=== PATIENT | female | born 1965 | race Caucasian/White ===

== ENCOUNTER 2020-01-06 13:44 | Emergency (ER) | payer MEDICAID ==
[2020-01-06] MEDS ORDERED: Sodium Chloride 0.9% 1000 ML 1,000 ML IV STA (14:06)
[2020-01-06] MEDS ORDERED: Sodium Chloride 0.9% 1000 ML 1,000 ML ONE (14:34)
--- NOTE | 2020-01-06 14:39 | ERPHSYRPT ---
- History of Present Illness Time Seen by Provider: 01/06/20 14:00 Patient Subjective Stated Complaint: Cough Triage Nursing Assessment: Patient ambulated back to ED and transferred self to bed. Patient A+O X3. Patient's skin pink, warm and dry. Patient complains of cough for 2 days. Patient states cough is non productive. Patient also complains of sore throat and congestion with occasional SOB. Patient states she started with a headache last Thursday that lasted 4 days. Patient complains of occasional bodyaches and back pain. Lungs clear a/p michael. Patient denies fever. Physician History: Is a 54-year-old female with 2 days of cough shortness of breath congestion sore throat. This illness started with headache and body aches approximately 4 days ago she is also noted loss of sense of smell Timing/Duration: day(s) (5), gradual onset Cough Quality/Degree: dry cough Possible Cause: occasional episodes Associated Symptoms: chest pain/soreness, cough, muscle aches, nasal drainage, shortness of breath, No fever Allergies/Adverse Reactions: No Known Drug Allergies Allergy (Unverified 01/06/20 13:50) Home Medications: Buspirone HCl [Buspar] 1 tab PO BID 01/06/20 [History] Dextroamphetamine/Amphetamine [Adderall 10 mg Tablet] 1 tab PO DAILY 01/06/20 [History] Lamotrigine [Lamictal] 1 tab PO BID 01/06/20 [History] Sertraline HCl [Zoloft] 1 tab PO BID 01/06/20 [History] Hx Influenza Vaccination/Date Given: No Hx Pneumococcal Vaccination/Date Given: No Immunizations Up to Date: Yes Travel Risk - International Travel Have you traveled outside of the country in past 3 weeks: No - Coronavirus Screening Are you exhibiting any of the following symptoms?: Yes Symptoms: Cough: New Onset, Shortness of Breath, Vomiting/Diarrhea, Headaches/Body Aches/Fatigue Close contact with a COVID-19 positive Pt in past 14-21 Days: No - Review of Systems Constitutional: No Fever, No Chills Eyes: No Symptoms Ears, Nose, & Throat: No Symptoms, Nose Discharge, Throat Pain, Painful Swallowing Respiratory: Cough, Dyspnea, Dyspnea on Exertion ([place]) Cardiac: No Chest Pain, No Edema, No Syncope Abdominal/Gastrointestinal: No Abdominal Pain, No Nausea, No Vomiting, No Diarrhea Genitourinary Symptoms: No Dysuria Musculoskeletal: Arthralgias, Joint Pain, Myalgias, No Back Pain, No Neck Pain Skin: No Rash Neurological: Other (Loss of smell), No Dizziness, No Focal Weakness, No Sensory Changes Psychological: No Symptoms Endocrine: No Symptoms All Other Systems: Reviewed and Negative - Past Medical History Pertinent Past Medical History: No Neurological History: No Pertinent History ENT History: No Pertinent History Cardiac History: No Pertinent History Respiratory History: No Pertinent History Endocrine Medical History: No Pertinent History Musculoskeletal History: No Pertinent History GI Medical History: No Pertinent History History: No Pertinent History Psycho-Social History: Depression Female Reproductive Disorders: No Pertinent History - Past Surgical History Past Surgical History: Yes Neuro Surgical History: No Pertinent History Cardiac: No Pertinent History Respiratory: No Pertinent History Gastrointestinal: Cholecystectomy Genitourinary: No Pertinent History Musculoskeletal: Orthopedic Surgery Female Surgical History: Hysterectomy Other Surgical History: Thoracic outlet, right shoulder surgery - Social History Smoking Status: Never smoker Exposure to second hand smoke: No Drug Use: none Patient Lives Alone: Yes - Female History Hx Last Menstrual Period: hysterectomy Hx Now: No - Nursing Vital Signs Nursing Vital Signs: Initial Vital Signs Temperature 97.9 F 01/06/20 13:54 Pulse Rate 74 01/06/20 13:54 Respiratory Rate 18 01/06/20 13:54 Blood Pressure 124/88 01/06/20 13:54 O2 Sat by Pulse Oximetry 98 01/06/20 13:54 Pain Scale Pain Intensity 0 - Physical Exam General Appearance: mild distress, alert Eye Exam: PERRL/EOMI, eyes nml inspection Ears, Nose, Throat Exam: normal ENT inspection, TMs normal, pharynx normal, moist mucous membranes Neck Exam: normal inspection, non-tender, supple, full range of motion Respiratory Exam: normal breath sounds, lungs clear, No respiratory distress Cardiovascular Exam: regular rate/rhythm, normal heart sounds Gastrointestinal/Abdomen Exam: soft, No tenderness Back Exam: normal inspection, No CVA tenderness, No vertebral tenderness Extremity Exam: normal inspection, normal range of motion Neurologic Exam: alert, oriented x 3, cooperative, normal mood/affect, sensation nml, No motor deficits Skin Exam: normal color, warm, dry, No rash Lymphatic Exam: No adenopathy SpO2: 98 - Course Nursing assessment & vital signs reviewed: Yes EKG Interpreted by Me: RATE (71), NORMAL AXIS, NORMAL INTERVALS, NORMAL QRS, NORMAL ST-T - Radiology Exams Chest X-ray Interpretation: Reviewed by me, Negative Ordered Tests: Active Orders 24 hr Category Date Time Status EKG-ER Only STAT Care 01/06/20 14:06 Active CHEST 1 VIEW (PORTABLE) Stat Exams 01/06/20 14:07 Completed BLOOD CULTURE Stat Lab 01/06/20 14:07 Ordered CBC W DIFF Stat Lab 01/06/20 14:35 Completed CMP Stat Lab 01/06/20 14:35 Completed D-DIMER QUANTITATIVE Stat Lab 01/06/20 14:35 Received Ferritin Stat Lab 01/06/20 14:35 Received LDH-LACTATE DEHYDROGENASE Stat Lab 01/06/20 14:35 Completed Lactic Acid Stat Lab 01/06/20 14:36 Completed MAGNESIUM Stat Lab 01/06/20 14:35 Completed PROTIME WITH INR Stat Lab 01/06/20 14:35 Received PTT Stat Lab 01/06/20 14:35 Received TROPONIN Q3H Lab 01/06/20 14:50 Received TROPONIN Q3H Lab 01/06/20 17:15 Ordered TROPONIN Q3H Lab 01/06/20 20:15 Ordered TROPONIN Q3H Lab 01/06/20 23:15 Ordered TROPONIN Q3H Lab 01/07/20 02:15 Ordered UA W/RFX UR CULTURE Stat Lab 01/06/20 14:45 Completed Medication Summary Discontinued Medications Generic Name Dose Route Start Last Admin Trade Name Freq PRN Reason Stop Dose Admin Sodium Chloride 1,000 mls @ 999 mls/hr 01/06/20 14:06 01/06/20 15:38 Sodium Chloride 0.9% 1000 Ml IV 01/06/20 15:06 Infused .Q1H1M STA Infusion Sodium Chloride Confirm 01/06/20 14:34 Sodium Chloride 0.9% 1000 Ml Administered 01/06/20 14:35 Dose 1,000 mls @ ud .ROUTE .STK-MED ONE Lab/Rad Data: Laboratory Result Diagrams 01/06/20 14:35 01/06/20 14:35 Laboratory Results 01/06/20 01/06/20 01/06/20 Range/Units 14:45 14:36 14:35 WBC (4.0-10.5) K/mm3 RBC (4.1-5.4) M/mm3 Hgb (12.0-16.0) gm/dl Hct (35-47) % MCV (78-100) fl MCH (26-32) pg MCHC (32-36) g/dl RDW (11.5-14.0) % Plt Count (150-450) K/mm3 MPV (7.5-11.0) fl Gran % (36.0-66.0) % Eos # (Auto) (0-0.5) Absolute Lymphs (auto) (1.0-4.6) Absolute Monos (auto) (0.0-1.3) Lymphocytes % (24.0-44.0) % Monocytes % (0.0-12.0) % Eosinophils % (0.00-5.0) % Basophils % (0.0-0.4) % Absolute Granulocytes (1.4-6.9) Basophils # (0-0.4) Sodium (137-145) mmol/L Potassium (3.5-5.1) mmol/L Chloride (98-107) mmol/L Carbon Dioxide (22-30) mmol/L Anion Gap (5-15) MEQ/L BUN (7-17) mg/dL Creatinine (0.52-1.04) mg/dL Estimated GFR ML/MIN Glucose (74-106) mg/dL Lactic Acid 0.6 (0.4-2.0) Calcium (8.4-10.2) mg/dL Magnesium (1.6-2.3) mg/dL Total Bilirubin (0.2-1.3) mg/dL AST (14-36) U/L ALT (0-35) U/L Alkaline Phosphatase (38-126) U/L Lactate Dehydrogenase 176 (120-246) U/L Serum Total Protein (6.3-8.2) g/dL Albumin (3.5-5.0) g/dL Urine Color STRAW (YELLOW) Urine Appearance CLEAR (CLEAR) Urine pH 7.0 (5-6) Ur Specific Sloan 1.006 (1.005-1.025) Urine Protein NEGATIVE (Negative) Urine Ketones NEGATIVE (NEGATIVE) Urine Blood NEGATIVE (0-5) Marcello/ul Urine Nitrite NEGATIVE (NEGATIVE) Urine Bilirubin NEGATIVE (NEGATIVE) Urine Urobilinogen NEGATIVE (0-1) mg/dL Ur Leukocyte Esterase NEGATIVE (NEGATIVE) Urine WBC (Auto) NONE (0-5) /HPF Urine RBC (Auto) NONE (0-2) /HPF U Epithel Cells (Auto) NONE (FEW) /HPF Urine Bacteria (Auto) NONE (NEGATIVE) /HPF Urine Culture Reflexed NO (NO) Urine Glucose NEGATIVE (NEGATIVE) mg/dL 01/06/20 01/06/20 Range/Units 14:35 14:35 WBC 3.6 L (4.0-10.5) K/mm3 RBC 4.23 (4.1-5.4) M/mm3 Hgb 13.4 (12.0-16.0) gm/dl Hct 40.7 (35-47) % MCV 96.2 (78-100) fl MCH 31.7 (26-32) pg MCHC 32.9 (32-36) g/dl RDW 13.3 (11.5-14.0) % Plt Count 173 (150-450) K/mm3 MPV 9.8 (7.5-11.0) fl Gran % 61.9 (36.0-66.0) % Eos # (Auto) 0.01 (0-0.5) Absolute Lymphs (auto) 1.00 (1.0-4.6) Absolute Monos (auto) 0.35 (0.0-1.3) Lymphocytes % 27.8 (24.0-44.0) % Monocytes % 9.7 (0.0-12.0) % Eosinophils % 0.3 (0.00-5.0) % Basophils % 0.3 (0.0-0.4) % Absolute Granulocytes 2.23 (1.4-6.9) Basophils # 0.01 (0-0.4) Sodium 136 L (137-145) mmol/L Potassium 4.0 (3.5-5.1) mmol/L Chloride 106 (98-107) mmol/L Carbon Dioxide 28 (22-30) mmol/L Anion Gap 7.1 (5-15) MEQ/L BUN 11 (7-17) mg/dL Creatinine 0.79 (0.52-1.04) mg/dL Estimated GFR > 60.0 ML/MIN Glucose 87 (74-106) mg/dL Lactic Acid (0.4-2.0) Calcium 7.7 L (8.4-10.2) mg/dL Magnesium 1.9 (1.6-2.3) mg/dL Total Bilirubin 0.20 (0.2-1.3) mg/dL AST 27 (14-36) U/L ALT 11 (0-35) U/L Alkaline Phosphatase 49 (38-126) U/L Lactate Dehydrogenase (120-246) U/L Serum Total Protein 5.6 L (6.3-8.2) g/dL Albumin 3.3 L (3.5-5.0) g/dL Urine Color (YELLOW) Urine Appearance (CLEAR) Urine pH (5-6) Ur Specific Sloan (1.005-1.025) Urine Protein (Negative) Urine Ketones (NEGATIVE) Urine Blood (0-5) Marcello/ul Urine Nitrite (NEGATIVE) Urine Bilirubin (NEGATIVE) Urine Urobilinogen (0-1) mg/dL Ur Leukocyte Esterase (NEGATIVE) Urine WBC (Auto) (0-5) /HPF Urine RBC (Auto) (0-2) /HPF U Epithel Cells (Auto) (FEW) /HPF Urine Bacteria (Auto) (NEGATIVE) /HPF Urine Culture Reflexed (NO) Urine Glucose (NEGATIVE) mg/dL - Progress Progress: improved Air Movement: good Blood Culture(s) Obtained: Yes Antibiotics given: Yes - Departure Departure Disposition: Home Clinical Impression: Suspected COVID-19 virus infection Condition: Stable Critical Care Time: No Referrals: DOCTOR,NO FAMILY [Primary Care Provider] - Instructions: Cough, Adult (DC) Additional Instructions: Please isolate yourself pending the results of the COVID-19 test next is ordered. Prescriptions: Hydrocodone/APAP 5-325 Tab^^^ [[place] 5-325 Tablet^^^] 1 tab PO Q6HPRN PRN #10 tablet MDD 6 PRN Reason: Pain Cephalexin Mh 500 mg [Keflex 500 mg] 500 mg PO TID #21 capsule
--- NOTE | 2020-01-06 14:41 | XRAY ---
Exam: AP upright portable chest film from 01/06/2020. Comparison: None. Indication: 54-year-old female with cough for 3 days, shortness of breath, headaches; nonsmoker. Findings: The heart size and contour are normal. Moderate sized subcarinal calcified lymph nodes are seen extending to the right of midline. Some tiny calcified granulomas are seen at the inferior margin of the right hilum. Otherwise, the remainder of the contreras and mediastinal structures appears unremarkable. The lungs are adequately inflated. Pulmonary vascularity is normal. No air space infiltrates, vascular congestion, pneumothorax, or pleural fluid is seen. No acute osseous process is seen. 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 The right acromioclavicular joint appears relatively wide and contains a small sclerotic rimmed calcification within it. This is probably due to prior surgery at this level, or less likely, arthritic change. Impression: 1. 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 2. No air space infiltrates to suggest focal pneumonia or other acute cardiopulmonary disease is seen.
[2020-01-06 15:03] LABS: Absolute Neutrophil Ct (ANC) 2.23 (1.4-6.9); BASOPHIL % 0.3 % (0.0-0.4); Basophil (Absolute #) 0.01 (0-0.4); Eosinophil % 0.3 % (0.00-5.0); Eosinophil (Absolute #) 0.01 (0-0.5); Hematocrit 40.7 % (35-47); Hemoglobin 13.4 gm/dl (12.0-16.0); Lymphocytes % 27.8 % (24.0-44.0); Mean Cell Volume 96.2 fl (78-100); Mean Corpuscular Hemoglobin 31.7 pg (26-32); Mean Corpuscular Hgb Concent. 32.9 g/dl (32-36); Mean Platelet Volume 9.8 fl (7.5-11.0); Monocyte (Absolute #) 0.35 (0.0-1.3); Monocytes % 9.7 % (0.0-12.0); Neutrophil % 61.9 % (36.0-66.0); Platelet Count 173 K/mm3 (150-450); Red Blood Count 4.23 M/mm3 (4.1-5.4); Red Cell Distribution Width 13.3 % (11.5-14.0); White Blood Count 3.6 K/mm3 (4.0-10.5)
[2020-01-06 15:13] LABS: ALBUMIN 3.3 g/dL (3.5-5.0); ALKALINE PHOSPHATASE 49 U/L (38-126); ANION GAP 7.1 MEQ/L (5-15); BLOOD UREA NITROGEN 11 mg/dL (7-17); CHLORIDE 106 mmol/L (98-107); Calcium 7.7 mg/dL (8.4-10.2); Carbon Dioxide 28 mmol/L (22-30); Creatinine 1 0.79 mg/dL (0.52-1.04); EST GLOMERULAR FILTRATION RATE > 60.0 ML/MIN; Glucose 87 mg/dL (74-106); MAGNESIUM 1.9 mg/dL (1.6-2.3); SGOT/AST 27 U/L (14-36); SGPT/ALT 11 U/L (0-35); SODIUM 136 mmol/L (137-145); Total Protein 5.6 g/dL (6.3-8.2)
[2020-01-06 15:38] LABS: Appearance CLEAR (CLEAR); Bilirubin NEGATIVE (NEGATIVE); Blood NEGATIVE Ery/ul (0-5); Glucose NEGATIVE (NEGATIVE); Ketones NEGATIVE (NEGATIVE); Leukocyte Esterase NEGATIVE (NEGATIVE); Nitrite NEGATIVE (NEGATIVE); Protein,Urine Dip NEGATIVE (Negative); Specific Gravity 1.006 (1.005-1.025); Urobilinogen NEGATIVE mg/dL (0-1)
[2020-01-06 15:41] LABS: INFLUENZA A NEGATIVE (NEGATIVE); INFLUENZA B NEGATIVE (NEGATIVE); RESPIRATORY SYNCTIAL VIRUS NEGATIVE (Negative)
[2020-01-06] MEDS ORDERED: MOTRIN 400 MG PO ONE (15:48)
[2020-01-06] MEDS ORDERED: MOTRIN 400 MG ONE (15:49)
[2020-01-06 15:52] LABS: INR 1.12 (0.8-3.0); PROTIME 12.7 SECONDS (9.95-12.35)
[2020-01-06 15:55] LABS: PTT 30.5 SECONDS (25.3-37.0)
[2020-01-06 15:56] VITALS: BP 116/59; PULSE 92; O2SAT 99
== END 2020-01-06 16:10 | disposition home or self-care (01) ==
LOC: ED 13:44
DX: R51 Headache (principal); R05 Cough; R06.02 Shortness of breath; Z20.828 Contact with and (suspected) exposure to other viral communicable diseases
CPT/HCPCS: 36000; 36415; 71045; 80053; 81001; 82728; 83605; 83615; 83735; 84484; 85025; 85379; 85610; 85730; 86140; 87040; 87631; 93005; 96360; 99284; U0003; A9270-GY